=== PATIENT | female | born 1945 | race African-American/Black ===

== ENCOUNTER 2019-11-29 13:21 | Emergency (ER) | payer MEDICARE, OTHER ==
[~2019-11-29] VITALS: Ht 165.1 cm; Wt 79.4 kg
[2019-11-29] MEDS ORDERED: CLOP75TA15 PO (13:50)
[2019-11-29] MEDS ORDERED: LISI-607 PO (13:50)
--- NOTE | 2019-11-29 14:49 | NUR ---
PT WAS EVALUATED BY DR FERNÁNDEZ. PT WAS D/C'd TO HOME. D/C INSTRUCTIONS GIVEN TO THE PT BY DR FERNÁNDEZ.
[2019-11-29 14:51] VITALS: BP 143/82
== END 2019-11-29 14:52 | disposition home or self-care (01) ==
LOC: ER 13:21
DX: R53.83 Other fatigue (principal); Z20.828 Contact with and (suspected) exposure to other viral communicable diseases; I48.91 Unspecified atrial fibrillation; Z79.02 Long term (current) use of antithrombotics/antiplatelets
CPT/HCPCS: 99283; U0003; A4663

== ENCOUNTER 2019-12-11 19:59 | Inpatient (IN) | payer MEDICARE, OTHER ==
[~2019-12-11] VITALS: Ht 172.7 cm; Wt 79.4 kg
[~2019-12-11 19:59] MED LIST: CLOP75TA15 PO; LISI-607 PO
--- NOTE | 2019-12-11 20:17 | NUR ---
at bedside for assessment
[2019-12-11] MEDS ORDERED: IV NORMAL SALINE 1000 ML BAG IV ONE (20:30)
[2019-12-11] MEDS ORDERED: DEXAMETHASONE SOD PHOSPHATE 4 MG INJ IV ONE (21:00)
[2019-12-11] MEDS ORDERED: CEFTRIAXONE 1 G in IV DEXTROSE 5% 50 ML IV ONE (21:00)
[2019-12-11] MEDS ORDERED: AZITHROMYCIN IV 500 MG in IV DEXTROSE 5% 250 ML IV ONE (21:00)
[2019-12-11] MEDS ORDERED: CEFTRIAXONE /D5W 50ML IVPB **ER PYXIS IV ONE (21:08)
[2019-12-11] MEDS ORDERED: AZITHROMYCIN 500MG/ D5W 250ML IVPB **ER PYXIS ONLY IV ONE (21:08)
[2019-12-11] MEDS ORDERED: DEXAMETHASONE SOD PHOSPHATE 10 MG INJ ONE (21:08)
[2019-12-11 21:09] LABS: BASOPHILS % (AUTO) 0.4 % (0.0-2.0); HEMATOCRIT 47.5 % (31.2-41.9); HEMOGLOBIN 16.3 g/dL (10.9-14.3); LYMPHOCYTES # (AUTO) 1.6 K/uL (20.0-40.0); LYMPHOCYTES % (AUTO) 20.4 % (20.5-51.5); MEAN CORPUSCULAR HEMOGLOBIN 31.9 uug (24.7-32.8); MEAN CORPUSCULAR HGB CONC 34 g/dL (32.3-35.6); MEAN CORPUSCULAR VOLUME 93.2 fL (75.5-95.3); MONOCYTES # (AUTO) 0.7 K/uL (2.0-10.0); MONOCYTES % (AUTO) 8.8 % (0.0-11.0); NEUTROPHILS # (AUTO) 5.5 K/uL (1.8-8.9); NEUTROPHILS % (AUTO) 70.4 % (38.5-71.5); PLATELET COUNT (AUTO) 254 K/uL (179-408); WHITE BLOOD COUNT (AUTO) 7.8 K/uL (3.8-11.8)
[2019-12-11] MEDS ORDERED: LISI40TA4 PO (21:15)
[2019-12-11] MEDS ORDERED: CELE200C PO (21:15)
[2019-12-11] MEDS ORDERED: ZOLP10TA2 PO (21:15)
[2019-12-11] MEDS ORDERED: POTA10CA43 PO (21:15)
[2019-12-11] MEDS ORDERED: CILO100T PO (21:15)
[2019-12-11] MEDS ORDERED: OXYB5TAB29 PO (21:15)
[2019-12-11] MEDS ORDERED: POTA20TA10 PO (21:15)
[2019-12-11] MEDS ORDERED: DICL50TA9 PO (21:15)
[2019-12-11] MEDS ORDERED: ALPR0.25 PO (21:15)
[2019-12-11 21:21] LABS: CARBON DIOXIDE 21 mmol/L (21-32); CHLORIDE 99 mmol/L (98-107); CREATININE 1.9 mg/dL (0.6-1.3); GLUCOSE 124 mg/dL (74-106); POTASSIUM 4.9 mmol/L (3.5-5.1); UREA NITROGEN, BLOOD 24 mg/dL (7-18)
[2019-12-11 21:33] LABS: ALANINE AMINOTRANSFERASE 44 U/L (14-59); ALKALINE PHOSPHATASE 132 U/L (50-136); ASPARTATE AMINOTRANSFERASE 68 U/L (15-37); BILIRUBIN,DIRECT 0.1 mg/dL (0.0-0.2); BILIRUBIN,TOTAL 0.4 mg/dL (0.2-1.0); TOTAL PROTEIN, SERUM 7.7 g/dL (6.4-8.2)
--- NOTE | 2019-12-11 21:50 | NUR ---
Daniel CASTRO given report at this time
--- NOTE | 2019-12-11 21:51 | NUR ---
Patient received from ER from ER nurse Bettye.
--- NOTE | 2019-12-11 22:04 | NUR ---
Pt. admitted to Tele , under care of Dr. Bianca Mascorro Belongs List completed and all belongings sent
[2019-12-11] MEDS ORDERED: ONDANSETRON 4 MG/2 ML VIAL IV PRN (22:30)
[2019-12-11] MEDS ORDERED: ACETAMINOPHEN 325 MG TABLET PO PRN (22:30)
[2019-12-11 22:43] VITALS: BP 108/67
[2019-12-11] MEDS: IV NS 1000 ML 1,000 ML IV PRN (23:07)
[2019-12-12] VITALS: BP 149/74
--- NOTE | 2019-12-12 | NUR ---
Pt in good condition. Initial assessment completed, patient reports no SOB, no pain, no chills. VSS. No report/signs of pain, bed at lowest position, call light within reach, HOB elevated, no SOB, afebrile.
--- NOTE | 2019-12-12 02:00 | NUR ---
Pt called and asked for a warm blanket. Given one. Took patients temperature to check for fever and she had none (98.9). No report of chills. "just cold".
[2019-12-12 04:00] VITALS: BP 131/78
--- NOTE | 2019-12-12 05:29 | NUR ---
VSS. No report/signs of pain, bed at lowest position, call light within reach, HOB elevated, no SOB, afebrile. Patient slept very well throughout the night, only asked for a warm blanket. Took her temperature to check if she had a fever, she did not, temp at 98.9. No report of chills. Will endorse to oncoming nurse.
[2019-12-12] MEDS: METRONIDAZOLE 500 MG TABLET PO SCH ×3 (06:03→21:23)
[2019-12-12 06:48] LABS: BASOPHILS % (AUTO) 0.2 % (0.0-2.0); HEMATOCRIT 42.6 % (31.2-41.9); HEMOGLOBIN 14.6 g/dL (10.9-14.3); LYMPHOCYTES # (AUTO) 0.9 K/uL (20.0-40.0); LYMPHOCYTES % (AUTO) 22.4 % (20.5-51.5); MEAN CORPUSCULAR HEMOGLOBIN 31.9 uug (24.7-32.8); MEAN CORPUSCULAR HGB CONC 34 g/dL (32.3-35.6); MEAN CORPUSCULAR VOLUME 92.9 fL (75.5-95.3); MONOCYTES # (AUTO) 0.2 K/uL (2.0-10.0); MONOCYTES % (AUTO) 3.7 % (0.0-11.0); NEUTROPHILS # (AUTO) 3.1 K/uL (1.8-8.9); NEUTROPHILS % (AUTO) 73.7 % (38.5-71.5); PLATELET COUNT (AUTO) 258 K/uL (179-408); RED BLOOD CELL COUNT(AUTO) 4.59 MIL/uL (3.63-4.92); WHITE BLOOD COUNT (AUTO) 4.2 K/uL (3.8-11.8)
[2019-12-12 06:56] LABS: CARBON DIOXIDE 21 mmol/L (21-32); CHLORIDE 102 mmol/L (98-107); CREATININE 1.4 mg/dL (0.6-1.3); GLUCOSE 128 mg/dL (74-106); POTASSIUM 5.2 mmol/L (3.5-5.1); UREA NITROGEN, BLOOD 27 mg/dL (7-18)
[2019-12-12 07:02] LABS: ALANINE AMINOTRANSFERASE 38 U/L (14-59); ALKALINE PHOSPHATASE 114 U/L (50-136); ASPARTATE AMINOTRANSFERASE 50 U/L (15-37); BILIRUBIN,TOTAL 0.1 mg/dL (0.2-1.0); CHOLESTEROL 132 mg/dL (<200); HDL CHOLESTEROL 36 mg/dL (40-60); MAGNESIUM 1.8 mg/dL (1.8-2.4); PHOSPHOROUS 3.4 mg/dL (2.5-4.9); TOTAL PROTEIN, SERUM 6.6 g/dL (6.4-8.2); TRIGLYCERIDES 145 MG/DL (30-150)
[2019-12-12 07:10] LABS: THYROID STIMULATING HORMONE 0.547 mIU/mL (0.358-3.740)
--- NOTE | 2019-12-12 07:13 | NUR ---
assisted pt to bathroom; had loose BM and has urinated; stool and urine specimen collected and to be sent to lab.
[2019-12-12 07:45] LABS: *CLARITY,URINE CLEAR (CLEAR); *COLOR,URINE YELLOW (YELLOW); *KETONES,URINE 2+ (NEGATIVE); *UROBILINOGEN,URINE 0.2 E.U./dl (NORMAL); LEUKOCYTE ESTERASE ,URINE NEGATIVE (NEGATIVE); NITRITE, URINE NEGATIVE (NEGATIVE); PH,URINE 5.5 (5.0-8.0); UGLUCOSE NEGATIVE (NEGATIVE)
[2019-12-12 07:52] LABS: *BILIRUBIN,URIN 1+ (NEGATIVE); *BLOOD, URINE TRACE (NEGATIVE)
--- NOTE | 2019-12-12 07:52 | NUR ---
DR MIXIAN HERE TO SEE PATIENT WITH NEW ORDERS AND NOTED.
[2019-12-12] MEDS ORDERED: INSULIN REGULAR, HUMAN 300 UNIT/3 ML VIAL IV ONE (08:00)
[2019-12-12] MEDS ORDERED: DEXTROSE 50% 50 ML DISP.SYRIN IV ONE (08:00)
[2019-12-12 08:01] LABS: *CREATININE,URINE 181.6 mg/dL (30-125); *URINE TOTAL PROTEIN RANDOM 64.4 mg/dL (<150/24HR)
[2019-12-12] MEDS: CLOPIDOGREL 75 MG TABLET PO SCH (08:58)
[2019-12-12] MEDS: CELECOXIB 200 MG CAPSULE PO SCH (08:58)
[2019-12-12] MEDS: CILOSTAZOL 100 MG TABLET PO SCH ×2 (08:59→16:33)
[2019-12-12] MEDS ORDERED: LISINOPRIL 20 MG TABLET PO SCH (09:00)
[2019-12-12] MEDS ORDERED: DICLOFENAC SODIUM 50 MG PO SCH (09:00)
--- NOTE | 2019-12-12 10:00 | NUR ---
PATIENT IS ALERT AND ORIENTED IN THE BATHROOM HAVING BOUTS OF DIARRHEA LIQUID STOOLS ALL OVER THE FLOOR HER LEGS IN BED ETC CLEANSED AND DIAPER APPLIES PATIENT STATED THAT SHE IS LOOSING CONTROL.REMAIN ON PUI OBSERVATION AND C DIFF ISOLATION PENDING RESULTS OF BOTH THE STOOL AND THE COVID TEST REMAIN ON IVF ORDERED WITH NO S/S OF INFILTERATION ON SITE TELE REMAINS SR WILL CONTINUE TO OBSERVE.
[2019-12-12 10:02] LABS: BACTERIA,URINE FEW /HPF (NONE SEEN); RBC,URINE 0-3 /HPF (0-3); SQUAMOUS EPITHELIAL CELL,UR FEW /HPF (NONE SEEN); WBC,URINE 0-3 /HPF (0-3)
[2019-12-12 11:35] VITALS: BP 123/76
--- NOTE | 2019-12-12 14:09 | NUR ---
REMAIN ON ORAL ATB ORDERED WITH NO ADVERSE OR ALLERGIC REACTIONS AT THIS TIME STATED STILL HAVING LIQUID STOOLS BUT NOT MUCH WILL CONTINUE TO OBSERVE.
[2019-12-12 16:00] VITALS: BP 128/68
[2019-12-12] MEDS: IV NS 1000 ML 1,000 ML IV PRN (18:00)
--- NOTE | 2019-12-12 18:00 | NUR ---
PER LAB SPUTUM SPECIMEN IS NEEDED BECAUSE THE ONE THAT THEY HAVE FROM THE ED IS CONTAMINATED SPECIMEN CUP PROVIDED TO PATIENT AND SHE STATED THAT SHE HAS NO PHLEGM AT THIS TIME BUT SHE WAS INSTRUCTED TO PROVIDE THE SPECIMEN WHEN EVER SHE CAN AND SHE EXPRESSED UNDERSTANDING.
--- NOTE | 2019-12-12 18:49 | NUR ---
CALL RECEIVED FROM LAB PATIENTS RESULT FOR COVID PCR IS POSITIVE CALLED JEANETH THE HOSPITALIST AND NOTIFIED HER AND SHE STATED TO CALL THE PULMONARY CALLED DR BLANCHARD AND NOTIFIED HIM WITH NO NEW ORDERS AT THIS TIME
[2019-12-12 20:07] VITALS: BP 120/70
--- NOTE | 2019-12-12 20:26 | NUR ---
Patient in bed,talking to daughter over the phone.No s/s of distress noted at this time.On RA.saturating at 97%.Denies pain. Due meds given and IV ATb for PNA.No a/R noted.Iv on left forearm 20 g patent and intact.Reminded patient about the sputum to be collected.Patient verbalized understanding.Call light with in reach .Continue safety measures.
[2019-12-12] MEDS: CEFTRIAXONE 1 G in IV DEXTROSE 5% 50 ML IV SCH (21:21)
[2019-12-12] MEDS: OXYBUTYNIN XL 5 MG TABSR PO SCH (21:23)
[2019-12-12] MEDS: AZITHROMYCIN 250 MG TABLET PO SCH (21:23)
[2019-12-13 00:13] VITALS: BP 125/68
[2019-12-13 04:00] VITALS: BP 123/66
[2019-12-13] MEDS: METRONIDAZOLE 500 MG TABLET PO SCH ×3 (06:09→21:23)
--- NOTE | 2019-12-13 06:44 | NUR ---
Patient awake. No apparent distress noted.On RA saturating well.Diarrhea resolved per Patient.Stated she one BM today.All needs anticipated and met accordingly.
[2019-12-13 07:08] LABS: BASOPHILS % (AUTO) 0.2 % (0.0-2.0); HEMATOCRIT 39.1 % (31.2-41.9); HEMOGLOBIN 13.5 g/dL (10.9-14.3); LYMPHOCYTES # (AUTO) 1.6 K/uL (20.0-40.0); LYMPHOCYTES % (AUTO) 24.9 % (20.5-51.5); MEAN CORPUSCULAR HEMOGLOBIN 31.7 uug (24.7-32.8); MEAN CORPUSCULAR HGB CONC 34 g/dL (32.3-35.6); MEAN CORPUSCULAR VOLUME 91.9 fL (75.5-95.3); MONOCYTES # (AUTO) 0.8 K/uL (2.0-10.0); MONOCYTES % (AUTO) 11.8 % (0.0-11.0); NEUTROPHILS # (AUTO) 4.2 K/uL (1.8-8.9); NEUTROPHILS % (AUTO) 63.1 % (38.5-71.5); PLATELET COUNT (AUTO) 284 K/uL (179-408); RED BLOOD CELL COUNT(AUTO) 4.25 MIL/uL (3.63-4.92); WHITE BLOOD COUNT (AUTO) 6.6 K/uL (3.8-11.8)
[2019-12-13 07:25] LABS: BILIRUBIN,TOTAL 0.3 mg/dL (0.2-1.0); CREATININE 1.2 mg/dL (0.6-1.3); MAGNESIUM 1.6 mg/dL (1.8-2.4); PHOSPHOROUS 2.2 mg/dL (2.5-4.9); POTASSIUM 4.3 mmol/L (3.5-5.1); TOTAL PROTEIN, SERUM 6.1 g/dL (6.4-8.2)
--- NOTE | 2019-12-13 07:57 | NUR ---
RECEIVED PATIENT IN BED AWAKE ALERT AND ORIENTED DENIES PAIN OR DISCOMFORTS AT THIS TIME REMAIN ON COVID ISOLATION PER PROTOCOL.ON IVF ORDERED WITH NO S/S OF INFILTERATION ON SITE AT THIS TIME CALL LIGHTS AND PERSONAL BELONGINGS ARE WITHIN EASY REACH WILL CONTINUE TO OBSERVE.
[2019-12-13] MEDS: CILOSTAZOL 100 MG TABLET PO SCH ×2 (08:31→16:23)
[2019-12-13] MEDS: CLOPIDOGREL 75 MG TABLET PO SCH (08:32)
[2019-12-13] MEDS: CELECOXIB 200 MG CAPSULE PO SCH (08:32)
--- NOTE | 2019-12-13 09:27 | NUR ---
PATIENT SEEN AND EXAMINED BY DR YE WITH NEW ORDERS AND NOTED
[2019-12-13] MEDS: MAGNESIUM SULFATE/D5W 100 ML IV SCH ×2 (10:00→11:14)
[2019-12-13 11:35] VITALS: BP 100/42
--- NOTE | 2019-12-13 11:40 | NUR ---
MAGNESSIUM LEVEL IS 1.6 WITH ORDER FOR 2 BAGS OF MAGNESSIUM GIVEN ORDERED AND TOLERATED WELL WITH NO ADVERSE OR ALLERGIC REACTIONS AT THIS TIME WILL CONTINUE TO OBSERVE LEFT FOREARM HEPLOCK REMAINS INTACT MADE COMFORTABLE WILL CONTINUE TO OBSERVE.
[2019-12-13 16:00] VITALS: BP 115/62
[2019-12-13] MEDS ORDERED: NEUTRA PHOS PACKET PO ONE (16:00)
--- NOTE | 2019-12-13 16:25 | NUR ---
PHOS LEVEL IS 2.2 WITH ORDER FOR 2 PACKETS OF NEUTROPHOS GIVEN ORDERED.
--- NOTE | 2019-12-13 19:40 | NUR ---
PATIENT ALERT ORIENTED, NO SOB NO CHEST PAIN, TELE MONITOR SINUS RHYTHM AT THIS TIME. PATIENT HAS NO COMPLAIN OF PAIN, REQUEST SLEEPING LATER, WILL MEDICATE ORDERED. PATIENT REQUEST NOT TO BE AWAKE WHEN SHE ASLEEP FOR 000 VITAL SIGNS, WILL NOTIFY MEDICAL LAB SCIENTIST. CYDNEY TO MONITOR.
[2019-12-13 20:00] VITALS: BP 122/68
[2019-12-13] MEDS: AZITHROMYCIN 250 MG TABLET PO SCH (21:23)
[2019-12-13] MEDS: CEFTRIAXONE 1 G in IV DEXTROSE 5% 50 ML IV SCH (21:23)
[2019-12-13] MEDS: OXYBUTYNIN XL 5 MG TABSR PO SCH (21:23)
[2019-12-13] MEDS: ZOLPIDEM 5 MG TABLET PO PRN (21:43)
[2019-12-14 00:58] VITALS: BP 128/72
[2019-12-14 04:54] VITALS: BP 109/72
[2019-12-14] MEDS: METRONIDAZOLE 500 MG TABLET PO SCH ×3 (06:32→22:00)
[2019-12-14 06:37] LABS: BILIRUBIN,TOTAL 0.3 mg/dL (0.2-1.0); MAGNESIUM 1.8 mg/dL (1.8-2.4); PHOSPHOROUS 2.6 mg/dL (2.5-4.9); POTASSIUM 3.7 mmol/L (3.5-5.1); TOTAL PROTEIN, SERUM 5.9 g/dL (6.4-8.2)
[2019-12-14 06:51] LABS: BASOPHILS % (AUTO) 0.5 % (0.0-2.0); EOSINOPHILS % (AUTO) 0.1 % (0.0-7.0); HEMATOCRIT 37.1 % (31.2-41.9); HEMOGLOBIN 13.4 g/dL (10.9-14.3); LYMPHOCYTES % (AUTO) 24.8 % (20.5-51.5); MEAN CORPUSCULAR HEMOGLOBIN 33.1 uug (24.7-32.8); MEAN CORPUSCULAR HGB CONC 36 g/dL (32.3-35.6); MEAN CORPUSCULAR VOLUME 91.3 fL (75.5-95.3); MONOCYTES # (AUTO) 1.3 K/uL (2.0-10.0); MONOCYTES % (AUTO) 15.9 % (0.0-11.0); NEUTROPHILS # (AUTO) 4.7 K/uL (1.8-8.9); NEUTROPHILS % (AUTO) 58.7 % (38.5-71.5); PLATELET COUNT (AUTO) 280 K/uL (179-408); RED BLOOD CELL COUNT(AUTO) 4.06 MIL/uL (3.63-4.92); WHITE BLOOD COUNT (AUTO) 8.1 K/uL (3.8-11.8)
--- NOTE | 2019-12-14 06:52 | NUR ---
PATIENT ALERT ORIENTED, NO SOB NO CHEST PAIN, TELE MONITOR SINUS RHYTHM AT THIS TIME. PATIENT REMAIN DROPLET PRECAUTION, PATIENT SLEPT FOR FEW HOURS, CONT TO MONITOR.
[2019-12-14] MEDS: CELECOXIB 200 MG CAPSULE PO SCH (08:05)
[2019-12-14] MEDS: CLOPIDOGREL 75 MG TABLET PO SCH (08:07)
[2019-12-14] MEDS: CILOSTAZOL 100 MG TABLET PO SCH ×2 (08:07→16:49)
[2019-12-14 11:35] VITALS: BP 109/73
--- NOTE | 2019-12-14 13:00 | NUR ---
SEEN BY HOSPITALIST FOR FOLLOW-UP SEE NOTES
[2019-12-14 13:25] LABS: BAND % (MANUAL) 5 % (0-10); LYMPHOCYTES % (MANUAL) 13 % (20-40); MONOCYTES % (MANUAL) 21 % (2-10); NEUTROPHILS % (MANUAL) 61 % (42-75)
[2019-12-14 16:00] VITALS: BP 111/69
[2019-12-14 17:33] LABS: A/G RATIO 0.8 (0.7-1.7); ALBUMIN 2.5 g/dL (2.9-4.4); ALPHA-1-GLOBULIN 0.2 g/dL (0.0-0.4); ALPHA-2-GLOBULIN 0.9 g/dL (0.4-1.0); BETA GLOBULIN 0.8 g/dL (0.7-1.3); M-SPIKE Not Observed g/dL (Not Observed)
--- NOTE | 2019-12-14 18:41 | NUR ---
TOLERATING RA SATURATING 94-96%. MEDICATED WITH TYLENOL FOR BODY ACHE WITH GOOD RELIEF. AFEBRILE
--- NOTE | 2019-12-14 19:30 | NUR ---
RECEIVED PT AWAKE,ALERT AND ORIENTEDX4. PT IN NO ACUTE DISTRESS. PT OBSERVED WITH NONPRODUCTIVE COUGH.PT ON ROOM AIR. PT IV INTACT. SAFETY AND COMFORT PROVIDED. WILL CONTINUE TO MONITOR.
[2019-12-14] MEDS: AZITHROMYCIN 250 MG TABLET PO SCH (20:01)
[2019-12-14] MEDS: CEFTRIAXONE 1 G in IV DEXTROSE 5% 50 ML IV SCH (20:02)
[2019-12-14] MEDS: OXYBUTYNIN XL 5 MG TABSR PO SCH (20:02)
[2019-12-14] MEDS: ZOLPIDEM 5 MG TABLET PO PRN (21:58)
[2019-12-15 04:16] VITALS: BP 112/45
[2019-12-15] MEDS: METRONIDAZOLE 500 MG TABLET PO SCH (06:39)
[2019-12-15] MEDS: CILOSTAZOL 100 MG TABLET PO SCH (06:40)
--- NOTE | 2019-12-15 06:50 | NUR ---
PT SLEPT INTERMITTENTLY. PT IN NO ACUTE DISTRESS. PRESCRIBED MEDICATION GIVEN AND PT TOLERATED IT WELL. IV INTACT. AMBIEN prn GIVEN PER PT REQUEST. SAFETY AND COMFORT PROVIDED. ALL NEEDS ARE MET. WILL CONTINUE TO MONITOR.
[2019-12-15 07:14] LABS: BASOPHILS % (AUTO) 0.4 % (0.0-2.0); CREATININE 1.1 mg/dL (0.6-1.3); EOSINOPHILS % (AUTO) 0.2 % (0.0-7.0); HEMATOCRIT 37.5 % (31.2-41.9); HEMOGLOBIN 12.9 g/dL (10.9-14.3); MAGNESIUM 1.8 mg/dL (1.8-2.4); MEAN CORPUSCULAR HEMOGLOBIN 31.8 uug (24.7-32.8); MEAN CORPUSCULAR HGB CONC 34 g/dL (32.3-35.6); MEAN CORPUSCULAR VOLUME 92.8 fL (75.5-95.3); MONOCYTES # (AUTO) 1.1 K/uL (2.0-10.0); MONOCYTES % (AUTO) 17.5 % (0.0-11.0); NEUTROPHILS # (AUTO) 3.1 K/uL (1.8-8.9); NEUTROPHILS % (AUTO) 49.9 % (38.5-71.5); PLATELET COUNT (AUTO) 311 K/uL (179-408); POTASSIUM 3.6 mmol/L (3.5-5.1); RED BLOOD CELL COUNT(AUTO) 4.04 MIL/uL (3.63-4.92); WHITE BLOOD COUNT (AUTO) 6.2 K/uL (3.8-11.8)
[2019-12-15] MEDS: CLOPIDOGREL 75 MG TABLET PO SCH (08:27)
[2019-12-15] MEDS: CELECOXIB 200 MG CAPSULE PO SCH (08:27)
[2019-12-15 08:52] VITALS: BP 99/61
[2019-12-15] MEDS ORDERED: CALCIUM CARB/VITAMIN D 500MG-200UNITS TABLET PO SCH (09:00)
[2019-12-15] MEDS ORDERED: AZIT250T13 PO (10:52)
[2019-12-15] MEDS ORDERED: CALC-555 PO (10:52)
[2019-12-15 11:29] VITALS: BP 121/70
--- NOTE | 2019-12-15 14:28 | NUR ---
Vital signs WNL. No evidence of SOB/cough. Denies any nausea or discomfort. Education regarding new prescription and importance of continuity of care, new prescription and self isolation for 14 follow days provided. IV and ID band removed.
[2019-12-15 16:53] LABS: BAND % (MANUAL) 5 % (0-10); LYMPHOCYTES % (MANUAL) 28 % (20-40); MONOCYTES % (MANUAL) 6 % (2-10); NEUTROPHILS % (MANUAL) 60 % (42-75)
== END 2019-12-15 15:00 | disposition home or self-care (01) | DRG 177 ==
LOC: ER 19:59 → TELE3 22:00 → MEDSURG3 12-14 12:55
PROVIDERS: ADMIT Registered Nurse; ATTEND Nurse Practitioner Acute Care
DX: U07.1 COVID-19 (principal); J12.89 Other viral pneumonia; N17.0 Acute kidney failure with tubular necrosis; E87.2 Acidosis; I44.4 Left anterior fascicular block; I48.91 Unspecified atrial fibrillation; Z91.013 Allergy to seafood; I10 Essential (primary) hypertension; E87.5 Hyperkalemia; F41.9 Anxiety disorder, unspecified; G47.00 Insomnia, unspecified; N32.81 Overactive bladder; R53.1 Weakness; F17.210 Nicotine dependence, cigarettes, uncomplicated
CPT/HCPCS: 36415; 70030-TC; 71045; 83605; 83615; 83735; 83970; 84100; 84155; 84156; 84165; 84300; 84443; 85025; 85610; 86140; 87040; 87046; 87070; 87400; 93005; A4663; G0378; J0456; J0696; J1100; J1815; J3475; J3490; J7030; J7060; Q0144; U0003